=== PATIENT | male | born 1975 | race Caucasian/White ===

== ENCOUNTER 2016-12-27 20:19 | Emergency (ER) | payer MEDICAID ==
[~2016-12-27] VITALS: Ht 177.8 cm; Wt 99.8 kg
[~2016-12-27 20:19] MED LIST: ALLOPURINOL100 M1 PO; BENADRYL 50MG C50 MG PO; BENZONATATE100 MG PO; CIPRO 500MG TA500 MG PO; CYCLOBENZAPRINE10 M1 PO; DOXYCYCLINE HY100 M3 PO; HYDROCODONE1 TABLET PO; KEPPRA 500 MG500 MG PO; MEDROL 4MG. DOSE4 MG PO; MOTRIN800 MG PO; OXCARBAZEPINE300 M1 PO; PHENERGAN25 M3 PO; PREDNISONE20 MG PO; PRILOSEC20 MG PO; RANITIDINE HCL300 M1 PO; RANITIDINE75 MG PO; ROBAXIN-750750 MG PO; STERAPRED DS10 MG PO; ULTRACET 325 MG1 TAB PO; ULTRAM 50 MG TA50 MG PO; ULTRAM50 MG PO
[2016-12-27 20:45] LABS: UTC STREP SCREEN NOT DETECTED (NOTDETECTED)
[2016-12-27] MEDS ORDERED: FLONASE 50 MCG16 GM (20:57)
[2016-12-27] MEDS ORDERED: ZITHROMAX Z PA250 MG PO (20:57)
--- NOTE | 2016-12-27 21:07 | Urgent Treatment Center Report ---
History of Present Issue Date/Time Seen by Provider 12/27/162024 Visit Reason Pt arrived:Walked Presenting Problem:CONGESTION, SORE THROAT, HEADACHE, COUGH FOR 3 DAYS Location if Accident: Onset of symptoms date/time:/ or onset unknown for:MEDICAL HX UNKNOWN Have you (or family members/close friends) recently traveled outside the [place]? N If Yes, where/when: Have you had exposure to infectious disease within the past month? TB? Other? Specify: Patient states that he has had sinus pain and pressure along with sore throat, headache and cough for 3 days that has not improved. States that nothing helps or improves pain and he just over all feels bad Source patient Exam Limitations no limitations ALLERGIES Coded Allergies: Penicillins (11/14/15) Home Medications Reported Medications ALLOPURINOL (Allopurinol 100MG) 300 MG PO BID Oxcarbazepine 300 MG PO BID #60 History Medical History General CAD? No Angina: No NM: No Hypertension? No Hyperlipidemia? No CHF? No DVT? No PE? No COPD? No Asthma? No Anemia? No GERD? No Gastric ulcers? No GI Bleed? No Hernia? No Thyroid Problems? No Hypothyroidism? No CVA? No Seizures? Yes Diabetes? No Renal Insuffiency? No UTI? No Stones? No BPH? No GB Disease: No Nephritic Syndrome? No Asplenia? No Hepatitis? No Sickle Cell Disease? No Arthritis? No Migraines? No Cataracts? No Glaucoma? No MRSA? No HIV? No TB? No Anxiety? No Depression? No Cancer? No Immunization HX DT/Tetanus Unknown Pneumonia Never Had Surgical Hx Previous Surgery?Y TONSILLECTOMY Oral Surgery Family History Family HX Diabetes No CAD Yes Hypertension No Hyperlipidemia Yes Cancer No TB No Social History Smoking Hx Smoker: Current Every Day Smoker Tobacco: Yes Type Cigarettes Packs/day > 3 Packs Alcohol Alcohol: No Review of Systems All Other Systems Reviewed and Negative Physical Exam Vital Signs Vital Signs Date Time Temp Pulse Resp B/P Pulse O2 O2 Flow FiO2 Ox Delivery Rate 12/27 2114 98.7 90 16 144/86 98 12/27 2035 98.7 90 16 144/ 98 Patient nose red, patient c/o pain over the maxillary sinus area that worsened when palpated, complains of headache and nasal congestion, nasal passage red, (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 No: respiratory distress. Lung Sounds bilateral: normal breath sounds, lungs clear. Cardiovascular normal exam, regular rate/rhythm, no peripheral edema Neurologic alert, normal exam Medical Decision Making LABS/Meds/Orders Pt receiving controlled substance in ED? No Results/Orders Laboratory Tests 12/27/162035: Influenza Type A Ag NOT DETECTED, Influenza Type B Ag NOT DETECTED, Group A Strep Screen NOT DETECTED Orders Procedure Date/time Status UTC STREP SCREEN 12/27 2035 Complete UTC FLU A,B 12/27 2035 Complete Departure Departure Time of Disposition 2104 Disposition DC Home or Self Care(routine) Clinical Impression Primary Impression: Sinusitis, bacterial Condition STABLE Referrals Bobby Samuel MD (Family) Patient Instructions Azithromycin, DI for Sinusitis, Fluticasone Nasal [place], Sinus Headache Additional Instructions Follow up family doctor if no improvements 2-3 days Take medications as prescribed Return if needed Discharge Counseling Counseled pt/family regarding diagnosis, test results, home care Prescriptions Current Visit Scripts Azithromycin (Zithromycin (Z-MYESHA) 250MG Tab) 250 MG PO DAILY #6 TAB TAKE TWO (2) TABLETS ON DAY 1, THEN ONE (1) TABLET DAY #2 THRU #5 Fluticasone Propionate (Flonase 50 Mcg Nasal [place]) 2 SPRAY NA DAILY #1 BOT at 2151
[2016-12-27 21:15] VITALS: BP 144/86
[2017-01-20] MEDS ORDERED: PERCOCET 325 MG1 TA4 PO (01:22)
[2017-02-06] MEDS ORDERED: NAPROXEN375 M2 PO (17:28)
== END 2016-12-27 21:15 | disposition home or self-care (01) ==
LOC: UTC 20:19
PROVIDERS: Nurse Practitioner
DX: J01.90 Acute sinusitis, unspecified (principal); B96.89 Other specified bacterial agents as the cause of diseases classified elsewhere; Z72.0 Tobacco use

== ENCOUNTER 2017-01-14 11:57 | Emergency (ER) | payer OTHER, MEDICAID ==
[~2017-01-14] VITALS: Ht 177.8 cm; Wt 104.3 kg
[~2017-01-14 11:57] MED LIST changes: +FLONASE 50 MCG16 GM; +ZITHROMAX Z PA250 MG PO
[2017-01-14] MEDS ORDERED: RANITIDINE HCL300 M1 PO (12:14)
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
[2017-01-14 13:16] VITALS: BP 136/90
--- NOTE | 2017-01-14 17:46 | RADIOLOGY REPORT PS360 ---
HAND-RT 3 VIEWS COMPARISON: Right fifth finger 09/27/2013 HISTORY: Traumatic injury to tip of middle finger TECHNIQUE: AP lateral and oblique views FINDINGS: The comminuted fracture through the mid shaft of the distal phalanx of the middle finger with prominent soft tissue injury as well resulting in almost complete indentation at the fracture site. There is a surgical dressing about the tip of the finger. The proximal and middle phalanx appear intact. Remaining phalanges all appear intact and the metacarpals are normal. IMPRESSION: Comminuted fracture distal phalanx middle finger with from soft tissue injury as well.
[2017-01-15] MEDS ORDERED: CEPHALEXIN500 MG PO (19:41)
[2017-01-15] MEDS ORDERED: PERCOCET1 TAB PO (19:42)
[2017-01-15] MEDS ORDERED: PERCOCET 325 MG1 TA4 PO (20:30)
[2017-01-20] MEDS ORDERED: PERCOCET 325 MG1 TA4 PO (01:22)
[2017-02-06] MEDS ORDERED: NAPROXEN375 M2 PO (17:28)
== END 2017-01-14 13:25 | disposition short-term general hospital (02) ==
LOC: ER 11:57
DX: S68.112A Complete traumatic metacarpophalangeal amputation of right middle finger, initial encounter (principal); W37.8XXA Explosion and rupture of other pressurized tire, pipe or hose, initial encounter; Y92.69 Other specified industrial and construction area as the place of occurrence of the external cause; S61.219A Laceration without foreign body of unspecified finger without damage to nail, initial encounter; Z23 Encounter for immunization

== ENCOUNTER 2017-01-15 19:26 | Emergency (ER) | payer OTHER, MEDICAID ==
[~2017-01-15] VITALS: Ht 177.8 cm; Wt 104.3 kg
[2017-01-15] MEDS ORDERED: CEPHALEXIN500 MG PO (19:41)
[2017-01-15] MEDS ORDERED: PERCOCET1 TAB PO (19:42)
[2017-01-15] MEDS ORDERED: PERCOCET 325 MG1 TA4 PO (20:30)
--- NOTE | 2017-01-15 20:32 | Emergency Room Report ---
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 N Clinical Suspician of Infection? N Mental Status: 1 - Regular (Normal Baseline) Sepsis Risk:Low Sepsis Risk Have you (or family members/close friends) recently traveled outside the [place]? N If Yes, where/when: Have you had exposure to infectious disease within the past month? TB? Other? Specify: Source patient, RN notes reviewed, family, old records Exam Limitations no limitations Comment pt with recent traumatic rt hand injury and was seen at [facility] pt with pain which is not relieved adequately by current pain meds Cardiac Chest Pain Chest pain indicative of cardiac No Timing/Duration this evening Severity moderate ALLERGIES Coded Allergies: Penicillins (11/14/15) Uncoded Allergies: IV DYE (01/14/17) Home Medications Active Scripts Fluticasone Propionate (Flonase 50 Mcg Nasal [place]) 2 SPRAY NA DAILY #1 BOT Prov: 12/27/16 Reported Medications ALLOPURINOL (Allopurinol 100MG) 300 MG PO BID Ranitidine Hcl (Ranitidine 300MG) 300 MG PO BID #60 CEPHALEXIN MONOHYDRATE (Cephalexin 500MG Capsule) 500 MG PO Q8 OXYCODONE HCL/ACETAMINOPHEN (Percocet 5-325 MG Tablet) 1 TAB PO Q6HP PRN PAIN Oxcarbazepine 300 MG PO BID #60 History Medical History General CAD? No Angina: No NH: No Hypertension? No Hyperlipidemia? No CHF? No DVT? No PE? No COPD? No Asthma? No Anemia? No GERD? Yes Gastric ulcers? No GI Bleed? No Hernia? No Thyroid Problems? No Hypothyroidism? No CVA? No Seizures? Yes Diabetes? No Renal Insuffiency? No End Stage Renal Disease? No UTI? No Stones? No BPH? No GB Disease: No Nephritic Syndrome? No Asplenia? No Hepatitis? No Sickle Cell Disease? No Arthritis? No Migraines? No Cataracts? No Glaucoma? No MRSA? No HIV? No TB? No Anxiety? No Depression? No Cancer? No More? Yes Additional hx: GOUT Immunization Hx Ped.Immunizations UTD No DT/Tetanus Unknown Pneumonia Never Had Surgical Hx Previous Surgery?Y TONSILLECTOMY Oral Surgery Family History Family Hx Diabetes No CAD Yes Hypertension No Hyperlipidemia Yes Cancer No TB No Social History Smoking Hx Smoker: Never Smoker Tobacco: No Type Snuff Packs/day > 3 Packs Are you/the child exposed to second-hand smoke: No Alcohol Alcohol: No Drugs none Review of Systems All Other Systems Reviewed and Negative Constitutional denies fever Eyes denies drainage ENT denies: ear pain, epistaxis, throat pain. Respiratory denies cough, denies shortness of breath, denies wheezing Cardiovascular denies chest pain, denies syncope Gastrointestinal denies abdominal pain, denies diarrhea, denies vomiting Genitourinary denies: dysuria, frequency, hesitancy, hematuria. Musculoskeletal see HPI, denies back pain, joint pain, joint swelling, other Skin denies rash Psychiatric/Neurological denies seizure Comment has taken meds as directed as pilll amt appears ok Physical Exam Vital Signs Vital Signs Date Time Temp Pulse Resp B/P Pulse O2 O2 Flow FiO2 Ox Delivery Rate 01/15 1932 98.2 69 20 116/62 98 - WBC >12,000 or <4,000 or 10% bands? 2 or more SIRS Criteria Met? B/P:116/62 MAP:80 Creatinine >2.0? UA output<0.5ml/kg/hr for 2 hrs? Platelet count >100,000? Lactate >2.0mmol/1? INR >1.2 or PTT > than 60 sec? Evidence of Organ Dysfunction? Provider documented clinical suspician of infection? N Sepsis Criteria Count: 1 Sepsis Risk: Low Sepsis Risk General Appearance no apparent distress Eye Exam - bilateral eye PERRL, bilateral eye EOMI Ear, Nose, Throat normal ENT inspection Neck supple Respiratory Status No: respiratory distress. 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 No Departure Departure Time of Disposition 2023 Disposition DC Home or Self Care(routine) Clinical Impression Primary Impression: Traumatic amputation of right hand Qualifiers: Encounter type: initial encounter Qualified Code: S68.411A - Complete traumatic amputation of right hand at wrist level, initial encounter Condition STABLE Referrals Bobby Samuel MD (Family) Patient Instructions DI for Hand Pain Additional Instructions call pcp and [place] in am for follow up Discharge Counseling Counseled pt/family regarding diagnosis, medications/RX, follow up needs Prescriptions Current Visit Scripts OXYCODONE HCL/ACETAMINOPHEN (Percocet 7.5-325 MG Tablet) 1 TAB PO Q6HP PRN pain #12 TAB ED Critical Care Critical Care No at 203
--- NOTE | 2017-01-15 20:32 | Emergency Room Report ---
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 N Clinical Suspician of Infection? N Mental Status: 1 - Regular (Normal Baseline) Sepsis Risk:Low Sepsis Risk Have you (or family members/close friends) recently traveled outside the [place]? N If Yes, where/when: Have you had exposure to infectious disease within the past month? TB? Other? Specify: Source patient, RN notes reviewed, family, old records Exam Limitations no limitations Comment pt with recent traumatic rt hand injury and was seen at [facility] pt with pain which is not relieved adequately by current pain meds Cardiac Chest Pain Chest pain indicative of cardiac No Timing/Duration this evening Severity moderate ALLERGIES Coded Allergies: Penicillins (11/14/15) Uncoded Allergies: IV DYE (01/14/17) Home Medications Active Scripts Fluticasone Propionate (Flonase 50 Mcg Nasal [place]) 2 SPRAY NA DAILY #1 BOT Prov: 12/27/16 Reported Medications ALLOPURINOL (Allopurinol 100MG) 300 MG PO BID Ranitidine Hcl (Ranitidine 300MG) 300 MG PO BID #60 CEPHALEXIN MONOHYDRATE (Cephalexin 500MG Capsule) 500 MG PO Q8 OXYCODONE HCL/ACETAMINOPHEN (Percocet 5-325 MG Tablet) 1 TAB PO Q6HP PRN PAIN Oxcarbazepine 300 MG PO BID #60 History Medical History General CAD? No Angina: No NM: No Hypertension? No Hyperlipidemia? No CHF? No DVT? No PE? No COPD? No Asthma? No Anemia? No GERD? Yes Gastric ulcers? No GI Bleed? No Hernia? No Thyroid Problems? No Hypothyroidism? No CVA? No Seizures? Yes Diabetes? No Renal Insuffiency? No End Stage Renal Disease? No UTI? No Stones? No BPH? No GB Disease: No Nephritic Syndrome? No Asplenia? No Hepatitis? No Sickle Cell Disease? No Arthritis? No Migraines? No Cataracts? No Glaucoma? No MRSA? No HIV? No TB? No Anxiety? No Depression? No Cancer? No More? Yes Additional hx: GOUT Immunization Hx Ped.Immunizations UTD No DT/Tetanus Unknown Pneumonia Never Had Surgical Hx Previous Surgery?Y TONSILLECTOMY Oral Surgery Family History Family Hx Diabetes No CAD Yes Hypertension No Hyperlipidemia Yes Cancer No TB No Social History Smoking Hx Smoker: Never Smoker Tobacco: No Type Snuff Packs/day > 3 Packs Are you/the child exposed to second-hand smoke: No Alcohol Alcohol: No Drugs none Review of Systems All Other Systems Reviewed and Negative Constitutional denies fever Eyes denies drainage ENT denies: ear pain, epistaxis, throat pain. Respiratory denies cough, denies shortness of breath, denies wheezing Cardiovascular denies chest pain, denies syncope Gastrointestinal denies abdominal pain, denies diarrhea, denies vomiting Genitourinary denies: dysuria, frequency, hesitancy, hematuria. Musculoskeletal see HPI, denies back pain, joint pain, joint swelling, other Skin denies rash Psychiatric/Neurological denies seizure Comment has taken meds as directed as pilll amt appears ok Physical Exam Vital Signs Vital Signs Date Time Temp Pulse Resp B/P Pulse O2 O2 Flow FiO2 Ox Delivery Rate 01/15 1932 98.2 69 20 116/62 98 - WBC >12,000 or <4,000 or 10% bands? 2 or more SIRS Criteria Met? B/P:116/62 MAP:80 Creatinine >2.0? UA output<0.5ml/kg/hr for 2 hrs? Platelet count >100,000? Lactate >2.0mmol/1? INR >1.2 or PTT > than 60 sec? Evidence of Organ Dysfunction? Provider documented clinical suspician of infection? N Sepsis Criteria Count: 1 Sepsis Risk: Low Sepsis Risk General Appearance no apparent distress Eye Exam - bilateral eye PERRL, bilateral eye EOMI Ear, Nose, Throat normal ENT inspection Neck supple Respiratory Status No: respiratory distress. 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 No Departure Departure Time of Disposition 2023 Disposition DC Home or Self Care(routine) Clinical Impression Primary Impression: Traumatic amputation of right hand Qualifiers: Encounter type: initial encounter Qualified Code: S68.411A - Complete traumatic amputation of right hand at wrist level, initial encounter Condition STABLE Referrals Bobby Samuel MD (Family) Patient Instructions DI for Hand Pain Additional Instructions call pcp and [place] in am for follow up Discharge Counseling Counseled pt/family regarding diagnosis, medications/RX, follow up needs Prescriptions Current Visit Scripts OXYCODONE HCL/ACETAMINOPHEN (Percocet 7.5-325 MG Tablet) 1 TAB PO Q6HP PRN pain #12 TAB ED Critical Care Critical Care No at 203
[2017-01-15 20:55] VITALS: BP 125/78
[2017-01-20] MEDS ORDERED: PERCOCET 325 MG1 TA4 PO (01:22)
[2017-02-06] MEDS ORDERED: NAPROXEN375 M2 PO (17:28)
== END 2017-01-15 21:07 | disposition home or self-care (01) ==
LOC: ER 19:26
DX: S68 Traumatic amputation of wrist, hand and fingers (principal); Y92.69 Other specified industrial and construction area as the place of occurrence of the external cause